=== PATIENT | female | born 1965 | race African-American/Black ===

== ENCOUNTER → 2017-08-29 | Day surgery (SDC) | payer OTHER ==
[~2017-08-29] MED LIST: ADVAIR 100-501 EACH INH; ADVAIR 100/501 EA INH; AMITIZA24 MCG PO; ANUSOL-HC25 MG PR; BENTYL20 MG PO; CARAFATE1 GM PO; DYAZIDE 37.5-21 EACH PO; DYAZIDE PO; FENTANYL CITRATE/PF 100MCG/2 ML INJ ONE; GI COCKTAIL PO ONE; HYOSCYAMINE SULFATE 0.5 MG/ML AMP ONE; HYZAAR PO; KLONOPIN0.5 MG PO; LIDOCAINE HCL 2% LOCAL INJ 5 ML SDV VIAL INJ ONE; LOSARTAN POTASS25 MG PO; METOPROLOL SUCC50 MG PO; MIDAZOLAM HCL 2 MG/2 ML VIAL ONE; OMEPRAZOLE-BIC1 EAC1 PO; PANTOPRAZOLE 40 MG 10ML VIAL ONE; POTASSIUM CHLO10 MEQ PO; PROPOFOL IV EMULSION 10 MG/ML 50 ML VIAL ONE; REGLAN10 MG PO; TOPROL XL25 MG PO; TRIAMTERENE-HCTZ1 EA PO; XANAX0.5 MG PO; Z.0.REGLAN10 MG PO; Z.0.XANAX0.5 MG PO; Z.0.ZEGERID 40 MG1 E PO; Z.0.ZOLOFT50 MG PO; ZEGERID 40 MG1 EACH PO; ZEGERID PO; ZOLOFT50 MG PO; ZYRTEC10 M3 PO; [UNRECOGNIZED DRUG - OTHER] PO
--- NOTE | 2017-08-29 13:50 | Operative Report ---
DATE OF PROCEDURE: August 29, 2017 REFERRING PHYSICIAN: Dr. Sophia Myers. PROCEDURE PERFORMED: Esophagogastroduodenoscopy with polypectomy and esophageal dilatation and biopsies and colonoscopy with polypectomy. INDICATIONS FOR ESOPHAGOGASTRODUODENOSCOPY: Dysphagia, upper abdominal pain. INDICATIONS FOR COLONOSCOPY: Colorectal cancer screening, lower abdominal pain, personal history of colon polyps MEDICATION: Patient was done under MAC. Please see anesthesiologist's note. PROCEDURE: With the patient in the left lateral decubitus position flexible, fiberoptic Olympus gastroscope was introduced into the esophagus under direct visualization without any difficulty. There was some patchy erythema noted in distal esophagus. A mild stricture was noted at the GE junction that was dilated to a size 52-St Helenian Javed. The scope was then advanced with ease into the stomach and an approximately 1.2 cm sessile lesion was noted in the antrum and that was removed per snare electrocautery and polypectomy site was hemoclipped. The mucosa overlying the antrum as well as the body revealed some patchy erythema and mild to moderate edema and biopsies were obtained and sent to stain for H. pylori. The pylorus was of normal contour and shape. Was intubated with ease and the scope was advanced all the way to the 2nd portion of the duodenum. The scope was then withdrawn slowly. Mucosa overlying the proximal 2nd portion and the duodenal bulb appeared to be within normal limits. The scope was then withdrawn back into the stomach and retroflexed. Mucosa overlying the fundus and the cardia appeared to be within normal limits. The scope was then straightened out. The stomach was decompressed. Scope was subsequently withdrawn. Patient tolerated the procedure well. IMPRESSION: 1. Mild distal esophagitis. 2. Esophageal stricture at gastroesophageal junction dilated to size 52-St Helenian Javed. 3. Gastritis biopsied. Biopsy sent to stain for H. pylori. 4. Approximately 1.2 cm sessile mass antrum removed per piecemeal electrocautery and polypectomy site was hemoclipped times 2. PLAN: Follow up histology. Increase omeprazole to 40 mg 1 p.o. a.c. b.i.d. PROCEDURE: Patient was then turned around and after adequate lubrication of the anal canal a flexible fiberoptic Olympus colonoscope was inserted into the rectum with ease and advanced all the way to the cecum. The scope was then withdrawn slowly. Mucosa overlying the cecum appeared to be within normal limits. Colonic mucosa revealed changes compatible with melanosis coli pretty much throughout. One polyp was hot biopsied from the distal ascending colon. The transverse and descending, other than for melanosis coli and some diverticular disease in the distal descending, appeared to be within normal limits. Similar findings were noted in the sigmoid with some scattered diverticular disease. One submucosal nodule proximal rectum (?) carcinoid was hot biopsied. There was a minute polyp in the distal rectum that was hot biopsied. The scope was then retroflexed into the distal rectum and small internal hemorrhoids were noted, none of which were actively bleeding. The scope was then straightened out. The rectosigmoid area as well as the distal rectal area were decompressed. Scope was subsequently withdrawn. Patient tolerated the procedure well. IMPRESSION 1. Melanosis coli. 2. Ascending colon polyp, hot biopsied. 3. Diverticulosis. 4. Minute submucosal nodule proximal rectum (?) carcinoid, hot biopsied. 5. Distal rectal polyp hot biopsied. 6. Internal hemorrhoids, none actively bleeding. PLAN: Follow up histology. Initiate high-fiber low-fat diet. Initiate high-fiber supplement. Patient will need a followup colonoscopy in 3 years. Job#: [id number] cc:SOPHIA MYERS MD
--- OUTSIDE RECORDS SUMMARY | 2017-08-31 09:48 | XMS REPORT ---
Author [facility] Address Unknown Phone Unavailable Care Team Providers Care Director Engineering Name Role Phone DELTA DUMONT Unavailable Unavailable Problems This patient has no known problems. Allergies, Adverse Reactions, Alerts This patient has no known allergies or adverse reactions. Medications This patient has no known medications. Results Test Description Test Time Test Comments Text Results Atomic Results Result Comments BONE SCAN SPECT [place] [address] Patient Name: BELINDA WISE MR #: [id number] : 1965 Age/Sex: 51/F Req # : [id number] Adm Physician: Ordered by: DELTA DUMONT MD Report #: [id number] Location: [place] Room/Bed: Procedure: [id number] NM/BONE SCAN SPECT Exam Date: Exam Time: REPORT STATUS: Signed Bone Scan, delayed phase INDICATION: 51 F sustained fall from chair >6 months ago. Right knee pain has been persistent. COMPARISON: Multiple peripheral joint radiographs including right knee radiographs 10/12/2016; MRI cervical and lumbar spine 11/19/2016. REPORT: Approximately 3 hours following intravenous administration of 27 mCi of Tc-99m MDP, delayed total body images in the anterior and posterior projections and selected spot images were obtained. Focal areas of increased tracer in the cervical spine are consistent with degenerative change and correspond to degenerative changes seen on MRI 11/19/2016. Increased tracer is seen in the right patella and along the anterior aspect of the articular surface of the right femur distally. Some increased tracer is seen in the right quadriceps tendon distally. Otherwise, distribution of tracer activity is unremarkable throughout the skeletal system. No abnormal accumulation of tracer is seen in the soft tissues or urinary tract. IMPRESSION: Changes in the right knee are non-specific. They are most consistent with osteoarthritis although post-traumatic change could give this appearance. Some microcalcification is seen in the right quadriceps tendon, likely post-traumatic. Signed by: Dr. Lisa Vargas M.D. on 2016 6:50 PM Dictated By: LISA VARGAS MD 49 Transcribed By: ANGELO on 05/06/171849 COPY TO: DELTA DUMONT MD
== END | disposition home or self-care (01) ==
LOC: OR 08:05
PROVIDERS: ATTEND Internal Medicine Gastroenterology
DX: K29.50 Unspecified chronic gastritis without bleeding (principal); C7A.8 Other malignant neuroendocrine tumors; D12.2 Benign neoplasm of ascending colon; K62.1 Rectal polyp; K31.7 Polyp of stomach and duodenum; K22.2 Esophageal obstruction; K21.9 Gastro-esophageal reflux disease without esophagitis; K20.9 Esophagitis, unspecified; K63.89 Other specified diseases of intestine; K57.30 Diverticulosis of large intestine without perforation or abscess without bleeding; K64.8 Other hemorrhoids; I10 Essential (primary) hypertension; J45.909 Unspecified asthma, uncomplicated; F32.9 Major depressive disorder, single episode, unspecified; F41.9 Anxiety disorder, unspecified; Z01.810 Encounter for preprocedural cardiovascular examination
CPT/HCPCS: 43239; 43251; 43450; 45384; 93005; J1980; J2001; J2250

== ENCOUNTER 2017-09-01 16:54 | Emergency (ER) | payer OTHER ==
[~2017-09-01] VITALS: Ht 152.4 cm; Wt 90.3 kg
[~2017-09-01 16:54] MED LIST changes: -FENTANYL CITRATE/PF 100MCG/2 ML INJ ONE; -GI COCKTAIL PO ONE; -HYOSCYAMINE SULFATE 0.5 MG/ML AMP ONE; -LIDOCAINE HCL 2% LOCAL INJ 5 ML SDV VIAL INJ ONE; -MIDAZOLAM HCL 2 MG/2 ML VIAL ONE; -PANTOPRAZOLE 40 MG 10ML VIAL ONE; -PROPOFOL IV EMULSION 10 MG/ML 50 ML VIAL ONE
[2017-09-01] MEDS ORDERED: NIFEDIPINE 10 MG CAP SL ONE (18:45)
[2017-09-01 19:50] LABS: BASOPHILS # (AUTO) 0.1 (0.0-0.1); BASOPHILS % 0.8 % (0.0-1.0); EOSINOPHILS # (AUTO) 0.2 (0.0-0.4); EOSINOPHILS % 1.7 % (0.0-6.0); HEMATOCRIT 38.8 % (34.2-44.1); HEMOGLOBIN 12.6 g/dL (12.0-16.0); LYMPHOCYTES # (AUTO) 4.4 (1.0-3.2); LYMPHOCYTES % 45.1 % (18.0-39.1); MEAN CORPUSCULAR HEMOGLOBIN 27.3 pg (28-32); MEAN CORPUSCULAR HGB CONC 32.5 g/dL (31-35); MEAN CORPUSCULAR VOLUME 84.2 fL (81-99); MONOCYTES # (AUTO) 0.8 (0.2-0.8); MONOCYTES % 8.5 % (4.4-11.3); NEUTROPHILS # (AUTO) 4.2 (2.1-6.9); NEUTROPHILS % 43.7 % (38.7-80.0); PLATELET COUNT 364 x10e3/uL (140-360); RED BLOOD COUNT 4.61 x10e6/uL (3.6-5.1); RED CELL DISTRIBUTION WIDTH 13.3 % (11.7-14.4)
[2017-09-01 20:14] LABS: ALANINE AMINOTRANSFERASE 18 IU/L (0-55); ALBUMIN/GLOBULIN RATIO 0.8 (0.8-2.0); ALKALINE PHOSPHATASE 70 IU/L (40-150); ANION GAP 15.5 mmol/L (8-16); BLOOD UREA NITROGEN 8 mg/dL (7-26); BUN/CREATININE RATIO 9 (6-25); CALCIUM 9.6 mg/dL (8.4-10.2); CARBON DIOXIDE 25 mmol/L (22-29); CHLORIDE 104 mmol/L (98-107); CREATININE, SERUM 0.91 mg/dL (0.57-1.11); EST GLOMERULAR FILTRATION RATE > 60 ML/MIN (60-); GLUCOSE 99 mg/dL (74-118); POTASSIUM 3.5 mmol/L (3.5-5.1); SODIUM 141 mmol/L (136-145)
[2017-09-01] MEDS ORDERED: PANTOPRAZOLE 40 MG 10ML VIAL IV STA (20:42)
[2017-09-01] MEDS ORDERED: ONDANSETRON HCL INJ 2 MG/ML VIAL IV STA ×2 (20:42→21:25)
--- NOTE | 2017-09-01 21:17 | Diagnostic Imaging Report ---
EXAM: ABDOMEN ACUTE SERIES W/PA CXR DATE: 09/01/2017 6:23 PM Time stamp on exam: 1827 hours INDICATION: Abdominal pain status post colonoscopy COMPARISON: None FINDINGS: LINES/TUBES: None BOWEL PATTERN: No evidence for obstruction. SOFT TISSUES: 6 mm calcification overlying the inferior pole of the right kidney is indeterminate Cholecystectomy clips are present in the right upper quadrant LUNG: The lungs are clear. No pleural effusion or pneumothorax. No evidence of air under the diaphragm. BONES: No acute findings. IMPRESSION: 1. No acute intrathoracic abnormality. 2. No evidence of obstructive bowel gas pattern or free intraperitoneal air. 3. Indeterminate calcification overlying the inferior pole of the right kidney. Signed by: Dr. Butch Mi M.D. on 09/01/2017 9:13 PM
[2017-09-01] MEDS ORDERED: DIPHENHYDRAMINE HCL INJ 50 MG/ML VIAL IV ONE (21:30)
[2017-09-01] MEDS ORDERED: MORPHINE SULFATE 5 MG/ML VIAL IV ONE (21:30)
[2017-09-01] MEDS ORDERED: MORPHINE SULFATE 2 MG/ML SYR ONE (21:32)
[2017-09-01] MEDS ORDERED: DIPHENHYDRAMINE HCL INJ 1 ML ONE (21:32)
[2017-09-01 21:44] LABS: AMYLASE 52 U/L (25-125); LIPASE 13 U/L (8-78)
[2017-09-01] MEDS ORDERED: LORAZEPAM INJ 2 MG/ML VIAL IV ONE (21:45)
--- NOTE | 2017-09-01 22:49 | Diagnostic Imaging Report ---
EXAM: CT Abdomen and Pelvis WITHOUT contrast INDICATION: Abdominal pain and flank pain. COMPARISON: None. TECHNIQUE: Abdomen and pelvis were scanned utilizing a multidetector helical scanner from the lung base to the pubic symphysis without administration of IV contrast. Absence of intravenous contrast decreases sensitivity for detection of focal lesions and vascular pathology. Coronal and sagittal reformations were obtained. Stone protocol is performed. IV CONTRAST: None. ORAL CONTRAST: Gastrografin RADIATION DOSE: Total DLP: 569.61 mGy*cm Estimated effective dose: (DLP x 0.015 x size factor) mSv COMPLICATIONS: None FINDINGS: LINES and TUBES: None. LOWER THORAX: Unremarkable HEPATOBILIARY: The liver is diffuse hypodense compared to the spleen, consistent with diffuse hepatic diffuse hepatic steatosis. No focal hepatic lesions. No biliary ductal dilation. GALLBLADDER: There are cholecystectomy clips. SPLEEN: No splenomegaly. PANCREAS: No focal masses or ductal dilatation. ADRENALS: No adrenal nodules KIDNEYS/URETERS: No hydronephrosis. No cystic or solid mass lesions. 6 mm stone in the inferior renal collecting system of the right kidney. GI TRACT: No abnormal distention, wall thickening, or evidence of bowel obstruction. Appendix is normal. PELVIC ORGANS/BLADDER: The uterus is absent. Bilateral ovaries are unremarkable. LYMPH NODES: No lymphadenopathy. VESSELS: There is mild atherosclerotic disease in the aorta and major arterial branches. PERITONEUM / RETROPERITONEUM: No free air or fluid. BONES: Unremarkable. SOFT TISSUES: Findings in along the anterior abdominal wall compatible with prior abdominoplasty . IMPRESSION: 1. Severe diffuse hepatic steatosis. 2. Right 6 mm stone in the inferior renal collecting system. 3. Signed by: Dr. Butch Mi M.D. on 09/01/2017 10:46 PM
--- NOTE | 2017-09-02 00:44 | Diagnostic Imaging Report ---
Ventilation/perfusion lung scan Clinical Information: 51 F with severe chest and abdominal pain Comparison: None Discussion: Xenon-133 gas 11.2 mCi was administered via inhalation. Dynamic images of the lungs in the posterior projection were obtained through single breath, equilibrium, and washout phases. Distribution of tracer activity appears physiologic throughout the lungs.. There are no segmental ventilatory defects. Washout of tracer is mildly delayed with no evidence of air trapping. Perfusion images of the lungs were obtained in multiple projections following intravenous administration of approximately 5.4 mCi of Tc-99m MAA. Distribution of tracer appears physiologic throughout the lungs. The contours of the lungs are well demarcated. There are no segmental perfusion defects of any size. The cardiomediastinal silhouette is unremarkable. Impression: 1. Scan findings represent a VERY LOW probability for acute pulmonary embolic disease based on the PIOPED II criteria. 2. Scan evidence of mild obstructive lung disease. Signed by: Dr. Demetra Aldana M.D. on 09/02/2017 12:40 AM
[2017-09-02 01:45] VITALS: BP 124/65
== END 2017-09-02 01:00 | disposition home or self-care (01) ==
LOC: ER 16:54
DX: R10.11 Right upper quadrant pain (principal); R10.12 Left upper quadrant pain; R10.13 Epigastric pain; R11.2 Nausea with vomiting, unspecified; M54.5 Low back pain
CPT/HCPCS: 36415; 74022; 74176; 78582; 80053; 82150; 82550; 82553; 83690; 84484; 85025; 85379; 99284; A9540; A9558; J1200; J2060; J2270; J2405

== ENCOUNTER 2018-08-09 16:57 | Inpatient (IN) | payer OTHER ==
[~2018-08-09] VITALS: Ht 170.2 cm; Wt 92.2 kg
--- OUTSIDE RECORDS SUMMARY | 2018-08-09 17:01 | XMS REPORT | Clinical Summary ---
Author Author [facility] Address Unknown Phone Unavailable Care Team Providers Care Structural Worker Name Role Phone Neptali Zaragoza MD PCP Allergies Not on File Medications Not on file Active Problems Not on file Encounters Care Team Description Date Type Specialty Dev Sutton MD Gastro-esophageal reflux disease with esophagitis 04/29/2018 Hospital Radiology Encounter Dev Sutton MD Gastro-esophageal reflux disease with esophagitis (Primary Dx) 04/22/2018 Transcribe Access Orders Neptali Zaragoza MD Pain of left lower extremity 01/18/2018 Hospital Radiology Encounter Neptali Zaragoza MD Pain of left lower extremity (Primary Dx) 01/18/2018 Transcribe Access Orders after 08/08/2017 Social History Date Tobacco Use Types Packs/Day Years Used Never Assessed Sex Assigned at Date Recorded Not on file Industry Job Start Date Occupation Not on file Not on file Not on file Travel End Travel History Travel Start No recent travel history available. Last Filed Vital Signs Not on file Plan of Treatment Health Maintenance Due Date Last Done Comments CERVICAL CANCER SCREENING 1985 BREAST CANCER SCREENING 2014 COLON CANCER SCREENING 2014 SHINGLES VACCINES ( of 2014 2) INFLUENZA VACCINE 02/24/2018 Procedures Comments Procedure Name Priority Date/Time Associated Diagnosis NM GASTRIC EMPTYING Routine 04/29/2018 Gastro-esophageal reflux 10:24 AM CDT disease with esophagitis US DUPLEX VENOUS LOWER Routine 01/18/2018 Pain of left lower EXTREMITY LEFT 6:42 PM CDT extremity after 08/08/2017 Results * NM Gastric Emptying (04/29/2018 10:24 AM CDT) Narrative Performed At Procedure:NM GASTRIC EMPTYING [facility] Clinical History:K21.0 Gastro-esophageal reflux disease with esophagitis, reflux disease Technique 0.8 millicuries of Ym-10b-nqapjj colloid were mixed with an egg and cooked. The egg was fed to the patient and dynamic imaging of the abdomen in the anterior and posterior projections was performed for 90 minutes. Quantification of gastric emptying was performed using the geometric mean of the anterior and posterior projections. FINDINGS: Gastric emptying half time=68 minutes (normal is <100 minutes). IMPRESSION: Normal gastric emptying. [facility]-[id number] Procedure Note Interface, Radiology Results Incoming - 04/29/2018 10:39 AM CDT Procedure: NM GASTRIC EMPTYING Clinical History: K21.0 Gastro-esophageal reflux disease with esophagitis, reflux disease Technique 0.8 millicuries of Py-81o-xwvxqk colloid were mixed with an egg and cooked. The egg was fed to the patient and dynamic imaging of the abdomen in the anterior and posterior projections was performed for 90 minutes. Quantification of gastric emptying was performed using the geometric mean of the anterior and posterior projections. FINDINGS: Gastric emptying half time=68 minutes (normal is <100 minutes). IMPRESSION: Normal gastric emptying. [facility]-[id number] Performing Organization Address City/State/Zipcode Phone Number [facility] [address] [place] [address] * Pv duplex venous lower extremity (01/18/2018 6:42 PM CDT) Narrative Performed At EXAMINATION:US DUPLEX VENOUS LOWER EXTREMITY LEFT [facility] CLINICAL HISTORY:M79.605 Pain in left leg, pain COMPARISON:None. TECHNIQUE:Grayscale, color Doppler, and spectral waveform analysis of the left lower extremity deep venous system was performed. The common femoral, superficial femoral, proximal deep femoral, greater saphenous, and popliteal veins were evaluated. The calf veins were also evaluated. FINDINGS: 1. The visualized left common femoral, profunda femoral, femoral, popliteal, and calf veins demonstrate normal flow and augmentation without evidence of thrombosis. The right common femoral vein is patent. 2. There is no evidence of thrombosis within visualized portions of the left greater saphenous vein. 3.There is no evidence of a popliteal or Blackwell's cyst. IMPRESSION: Normal left lower extremity venous Doppler examination. There is no evidence of deep venous thrombosis. [facility]-[id number] Procedure Note Interface, Radiology Results Incoming - 01/18/2018 6:47 PM CDT EXAMINATION: US DUPLEX VENOUS LOWER EXTREMITY LEFT CLINICAL HISTORY: M79.605 Pain in left leg, pain COMPARISON: None. TECHNIQUE: Grayscale, color Doppler, and spectral waveform analysis of the left lower extremity deep venous system was performed. The common femoral, superficial femoral, proximal deep femoral, greater saphenous, and popliteal veins were evaluated. The calf veins were also evaluated. FINDINGS: 1. The visualized left common femoral, profunda femoral, femoral, popliteal, and calf veins demonstrate normal flow and augmentation without evidence of thrombosis. The right common femoral vein is patent. 2. There is no evidence of thrombosis within visualized portions of the left greater saphenous vein. 3. There is no evidence of a popliteal or Blackwell's cyst. IMPRESSION: Normal left lower extremity venous Doppler examination. There is no evidence of deep venous thrombosis. [facility]-[id number] Performing Organization Address City/State/Zipcode Phone Number [facility] [address] [place] [address] after 08/08/2017 Insurance Payer Benefit Subscriber ID Type Phone Address Plan / Group [facility] xxxxxxxxx HMO/PPO THCARE CHOICE/CHO ICE + Advance Directives Patient has advance care planning documents on file. For more information, melissaas e contact: Akbar Viera [address] [place] [address]
--- OUTSIDE RECORDS SUMMARY | 2018-08-09 17:01 | XMS REPORT | Clinical Summary ---
Author Author [facility] Address Unknown Phone Unavailable Care Team Providers Care Web Content Specialist Name Role Phone Zak Castellano PCP Allergies Comments Active Allergy Reactions Severity Noted Date Clarithromycin Anaphylaxis High 04/27/2018 Codeine Anaphylaxis High 04/27/2018 Erythromycin Anaphylaxis High 04/27/2018 Iodine And Iodide Anaphylaxis High 04/27/2018 Containing Products Hallucinations Ketorolac Other (See 04/27/2018 Comments) HIVES, WHELPS Morphine Itching 04/27/2018 Naproxen Anaphylaxis High 04/27/2018 Penicillins Anaphylaxis High 04/27/2018 PARALYSIS Nifedipine Other (See 04/27/2018 Comments) Propoxyphene Itching 04/27/2018 Butorphanol Tartrate Hives 04/27/2018 Sulfa (Sulfonamide Nausea And 04/27/2018 Antibiotics) Vomiting Sulfisoxazole Nausea And 04/27/2018 Vomiting Gatifloxacin In D5w Nausea And 04/27/2018 Vomiting Tramadol 04/27/2018 Diazepam 04/27/2018 Medications End Date Status Medication Sig Dispensed Refills Start Date Active metoclopramide HCl Take 20 mg by 0 (REGLAN) 10 MG tablet mouth 3 (three) times daily. Active ALPRAZolam (XANAX) 1 MG Take 1 mg by 0 tablet mouth 3 (three) times daily. Active fluticasone-salmeterol Inhale 1 puff 0 (ADVAIR) 100-50 mcg/dose by mouth via diskus inhaler inhaler 2 (two) times daily. Active sertraline (ZOLOFT) 50 MG Take 50 mg by 0 tablet mouth daily. Active losartan-hydroCHLOROthiaz Take 1 tablet 0 delmi (HYZAAR) 50-12.5 mg by mouth per tablet daily. Active triamterene-hydroCHLOROth Take 1 0 iazide (DYAZIDE) 37.5-25 capsule by mg per capsule mouth every morning. Active sucralfate (CARAFATE) 1 Take 1 g by 0 gram tablet mouth 4 (four) times daily. Active clonazePAM (KLONOPIN) 1 Take 1 mg by 0 MG tablet mouth daily. Active omeprazole-sodium Take 1 0 bicarbonate (ZEGERID) capsule by 40-1.1 mg-gram per mouth every capsule morning before breakfast. Active dicyclomine (BENTYL) 20 Take 20 mg by 0 mg tablet mouth every 6 (six) hours. Active omeprazole (PRILOSEC) 40 Take 40 mg by 0 MG capsule mouth 2 (two) times daily. Active cetirizine (ZYRTEC) 10 MG Take 10 mg by 0 tablet mouth daily. 05/05/2018 Discontinued losartan (COZAAR) 50 MG Take 50 mg by 0 tablet mouth daily. Active Problems Not on file Encounters Care Team Description Date Type Specialty Meli Garay MD REMOVAL,24HR PH PROBE 05/06/2018 Surgery Gastroenterology Meli Garay MD 05/06/2018 Hospital Gastroenterology Encounter Meli Garay MD TEST,MONITORING 24 HR PH 05/05/2018 Surgery Gastroenterology Isak Davis MD 05/05/2018 Anesthesia Gastroenterology Event Meli Garay MD 05/05/2018 Hospital Gastroenterology Encounter Tera Zelaya Jr., MD 04/27/2018 Anesthesia Gastroenterology Event Marcin Velazquez MD SIGMOIDOSCOPY,ULTRASOUND 04/27/2018 Surgery Gastroenterology Marcin Velazquez MD 04/27/2018 Hospital Gastroenterology Encounter after 08/08/2017 Social History Date Tobacco Use Types Packs/Day Years Used Never Smoker Smokeless Tobacco: Never Used Alcohol Use Drinks/Week oz/Week Comments No Sex Assigned at Date Recorded Not on file Industry Job Start Date Occupation Not on file Not on file Not on file Travel End Travel History Travel Start No recent travel history available. Last Filed Vital Signs Time Taken Vital Sign Reading 05/05/2018 9:26 AM CDT Blood Pressure 153/94 05/05/2018 9:26 AM CDT Pulse 72 05/05/2018 9:26 AM CDT Temperature 37.1 C (98.7 F) 05/05/2018 9:26 AM CDT Respiratory Rate 18 05/05/2018 9:26 AM CDT Oxygen Saturation 95% - Inhaled Oxygen - Concentration 04/27/2018 10:30 AM CDT Weight 92.8 kg (204 lb 9.6 oz) 04/27/2018 10:30 AM CDT Height 171.5 cm (5' 7.5") 04/27/2018 10:30 AM CDT Body Mass Index 31.57 Plan of Treatment Not on file Procedures Comments Procedure Name Priority Date/Time Associated Diagnosis REMOVAL,24HR PH PROBE 05/06/2018 Hiatal hernia 10:00 AM CDT MOTILITY 05/05/2018 Hiatal hernia 10:00 AM CDT Special Needs (ON MEDICATION ) TEST,MONITORING 24 HR PH 05/05/2018 Hiatal hernia 10:00 AM CDT Special Needs (ON MEDICATION ) REPORT OF PROCEDURE - 04/27/2018 ENDOSCOPY URL 3:56 PM CDT TISSUE EXAM AP Routine 04/27/2018 12:37 PM CDT UPPER 04/27/2018 Primary malignant ENDOSCOPY,SUBMUCOSAL 11:00 AM CDT neuroendocrine tumor of RESECTION colon (HCC) Special Needs (RADIAL SCOPE) SIGMOIDOSCOPY,ULTRASOUND 04/27/2018 Primary malignant 11:00 AM CDT neuroendocrine tumor of colon (HCC) Special Needs (RADIAL SCOPE) after 08/08/2017 Results * REPORT OF PROCEDURE - ENDOSCOPY URL (04/27/2018 3:56 PM CDT) Narrative Performed At * Tissue Exam (04/27/2018 12:37 PM CDT) Case Report Surgical Pathology [facility] Report [facility] Case: [id number] Authorizing Provider:Marcin Velazquez Collected: 04/27/2018 Yenny Mclain MD Ordering Location: [facility] Endoscopy Received: 04/27/2018 1500 Services Pathologist: Herrera Em MD Specimens: A) - Tumor,proximal polypectomy site B) - Tumor, distal polypectomy site C) - Polyp, Colon - Rectum, tumor esd removalproximal site D) - Polyp, Colon - Rectum, tumor esd removaldistal site DIAGNOSIS A. COLON, PROXIMAL POLYPECTOMY [facility] SITE, BIOPSY: [facility] - NEGATIVE FOR DYSPLASIA OR MALIGNANCY - NEGATIVE FOR RESIDUAL TUMOR B. COLON, DISTAL POLYPECTOMY SITE, BIOPSY: - NEGATIVE FOR DYSPLASIA OR MALIGNANCY - NEGATIVE FOR RESIDUAL TUMOR C. COLON, PROXIMAL SITE, ENDOSCOPIC SUBMUCOSAL DISSECTION: - NEGATIVE FOR DYSPLASIA OR MALIGNANCY (SEE COMMENT) - NEGATIVE FOR RESIDUAL TUMOR D. COLON, DISTAL SITE, ENDOSCOPIC SUBMUCOSAL DISSECTION: - NEGATIVE FOR DYSPLASIA OR MALIGNANCY (SEE COMMENT) - NEGATIVE FOR RESIDUAL TUMOR Signing Pathologist Direct Phone Line: [phone] COMMENT Sections show colonic mucosa [facility] with very superficial layer of [facility] submucosa. The surface epithelium shows minimal hyperplastic changes. No dysplasia or malignancy are seen. Per chart review, the patient has a history of neuroendocrine tumor of the colon. No residual neuroendocrine tumor is seen in the current resection. Clinical/endoscopic correlation is recommended. CPT Code(s) 17330 x 2, 89215 x 2 [facility] CLINICAL HISTORY NEUROENDOCRINE TUMOR (per [facility] chart review) [facility] SPECIMEN SOURCE A. Proximal polypectomy site. [facility] B. Distal polypectomy site. C: [facility] rectum colon polyp. proximal, ESD; D. Tumor ESD removal of distal site GROSS DESCRIPTION Part A labeled "proximal [facility] polypectomy site" consists of [facility] two fragments of fatima tissue measuring 0.1 and 0.2 cm submitted in A1. Part B labeled "distal polypectomy site" consists of a 0.1 cm fragment of fatima tissue submitted in B1. CG/ew Part C labeled "rectum colon polyp, proximal site tumor" consists of an unoriented shaved excision of fatima-red mucosa measuring 2 x 1.9 x 0.1 cm. Ink code: periphery blue; deep black. The specimen is serially sectioned from one end to the other. The surface is smooth and glistening with no distinct lesions seen. The specimen is entirely submitted C1 through C7 . Part D labeled "rectum colon polyp, distal site" consists of a shaved excision of fatima-red mucosa measuring 2.5 x 2 x 0.1 cm. The surface is smooth and glistening. The specimen is not oriented. Ink code: periphery blue, deep black. The specimen is serially sectioned from one end to the other. D1, through D8. CG/pl MICROSCOPIC DESCRIPTION Performed. [facility] Specimen Tissue - Tumor Performing Organization Address City/State/Zipcode Phone Number [facility] [address] [place] [address] MEDICAL CENTER after 08/08/2017 Insurance Payer Benefit Subscriber ID Type Phone Address Plan / Group [facility] [place] HMO xxxxxxxxx HMO/POS CARE POS SELECT CHOICE
[2018-08-09] MEDS ORDERED: KETOROLAC TROMETHAMINE 30 MG/ML VIAL IV STA (21:07)
[2018-08-09] MEDS ORDERED: SODIUM CHLORIDE 0.9% 1000ML 1,000 ML IV STA (21:07)
[2018-08-09] MEDS ORDERED: FAMOTIDINE 20 MG/2 ML VIAL IV ONE (21:15)
[2018-08-09] MEDS ORDERED: ONDANSETRON HCL INJ 2 MG/ML VIAL IV ONE (21:30)
[2018-08-09] MEDS ORDERED: DIPHENHYDRAMINE HCL INJ 50 MG/ML VIAL IV ONE (21:30)
[2018-08-09] MEDS ORDERED: DEXAMETHASONE SOD PHOS 10 MG/1 ML VIAL IV ONE (21:30)
[2018-08-09 23:01] LABS: BASOPHILS # (AUTO) 0.1 (0.0-0.1); BASOPHILS % 0.8 % (0.0-1.0); EOSINOPHILS # (AUTO) 0.1 (0.0-0.4); EOSINOPHILS % 1.4 % (0.0-6.0); HEMATOCRIT 40.2 % (34.2-44.1); HEMOGLOBIN 12.8 g/dL (12.0-16.0); LYMPHOCYTES # (AUTO) 4.3 (1.0-3.2); LYMPHOCYTES % 44.3 % (18.0-39.1); MEAN CORPUSCULAR HEMOGLOBIN 26.6 pg (28-32); MEAN CORPUSCULAR HGB CONC 31.8 g/dL (31-35); MEAN CORPUSCULAR VOLUME 83.4 fL (81-99); MONOCYTES # (AUTO) 0.8 (0.2-0.8); NEUTROPHILS # (AUTO) 4.4 (2.1-6.9); NEUTROPHILS % 45.3 % (38.7-80.0); PLATELET COUNT 316 x10e3/uL (140-360); RED BLOOD COUNT 4.82 x10e6/uL (3.6-5.1); RED CELL DISTRIBUTION WIDTH 13.9 % (11.7-14.4)
[2018-08-09 23:13] LABS: BILIRUBIN,URINE NEGATIVE (NEGATIVE); CLARITY,URINE CLOUDY (CLEAR); COLOR,URINE YELLOW (YELLOW); KETONES,URINE NEGATIVE (NEGATIVE); LEUKOCYTE ESTERASE ,URINE NEGATIVE (NEGATIVE); NITRITE,URINE NEGATIVE (NEGATIVE); PROTEIN,URINE DIPSTICK 2+ (NEGATIVE); URINE UROBILINOGEN 0.2 mg/dL (0.2 - 1)
[2018-08-09 23:16] LABS: ALANINE AMINOTRANSFERASE 30 IU/L (0-55); ALBUMIN 3.9 g/dL (3.5-5.0); ALBUMIN/GLOBULIN RATIO 1.1 (0.8-2.0); ALKALINE PHOSPHATASE 65 IU/L (40-150); ANION GAP 14.1 mmol/L (8-16); BLOOD UREA NITROGEN 8 mg/dL (7-26); BUN/CREATININE RATIO 9 (6-25); CALCIUM 9.9 mg/dL (8.4-10.2); CARBON DIOXIDE 27 mmol/L (22-29); CHLORIDE 100 mmol/L (98-107); CREATININE, SERUM 0.91 mg/dL (0.57-1.11); EST GLOMERULAR FILTRATION RATE > 60 ML/MIN (60-); GLUCOSE 137 mg/dL (74-118); POTASSIUM 3.1 mmol/L (3.5-5.1); SODIUM 138 mmol/L (136-145)
[2018-08-09 23:23] LABS: BACTERIA,URINE MANY /HPF; CALCIUM OXALATE CRYSTALS,UR FEW (FEW); EPITHELIAL CELLS,URINE MANY /LPF; RBC,URINE 0-5 /HPF (0-5); WBC,URINE (MAN) 0-5 /HPF (0-5)
[2018-08-10] VITALS (9 sets, daily range): BP systolic 150–176; BP diastolic 77–97
[2018-08-10] MEDS ORDERED: PROMETHAZINE 25MG/ NS 50ML (IV) IV PRN
[2018-08-10] MEDS ORDERED: ENALAPRILAT IV INJ 1.25 MG/ML VIAL IV PRN
[2018-08-10] MEDS ORDERED: SODIUM CHLORIDE FLUSH 10 ML SYR INJ PRN
[2018-08-10] MEDS ORDERED: DIPHENHYDRAMINE HCL INJ 50 MG/ML VIAL IV PRN
[2018-08-10] MEDS ORDERED: ZOLPIDEM TARTRATE 5 MG TAB PO PRN
--- OUTSIDE RECORDS SUMMARY | 2018-08-10 00:46 | XMS REPORT | Clinical Summary ---
Author Author [facility] Address Unknown Phone Unavailable Care Team Providers Care Manager Military Name Role Phone Neptali Zaragoza MD PCP [...] (Primary Dx) 01/18/2018 Transcribe Access Orders after 08/09/2017 Social History Date Tobacco Use Types Packs/Day [...] EXTREMITY LEFT 6:42 PM CDT extremity after 08/09/2017 Results * NM Gastric Emptying (04/29/2018 10:24 AM CDT) Narrative Performed At Procedure:NM GASTRIC EMPTYING [facility] Clinical History:K21.0 Gastro-esophageal reflux disease with esophagitis, reflux disease Technique 0.8 millicuries of Lp-06q-cukgry colloid were mixed with an egg and cooked. The egg was fed to the patient and dynamic imaging of the abdomen in the anterior and posterior projections was performed for 90 minutes. Quantification of gastric emptying was performed using the geometric mean of the anterior and posterior projections. FINDINGS: Gastric emptying half time=68 minutes (normal is <100 minutes). IMPRESSION: Normal gastric emptying. [facility]-[id number] Procedure Note Interface, Radiology Results Incoming - 04/29/2018 10:39 AM CDT Procedure: NM GASTRIC EMPTYING Clinical History: K21.0 Gastro-esophageal reflux disease with esophagitis, reflux disease Technique 0.8 millicuries of Kd-[id number]-[id number] colloid were mixed with an egg and cooked. The egg was fed to the patient and dynamic imaging of the abdomen in the anterior and posterior projections was performed for 90 minutes. Quantification of gastric emptying was performed using the geometric mean of the anterior and posterior projections. FINDINGS: Gastric emptying half time=68 minutes (normal is <100 minutes). IMPRESSION: Normal gastric emptying. [facility]-[id number] Performing Organization Address City/State/Zipcode Phone Number [facility] [address] [place] [address] * Pv duplex venous lower extremity (01/18/2018 [...] is no evidence of deep venous thrombosis. [facility]-[id number] Procedure Note Interface, Radiology Results Incoming - [...] is no evidence of deep venous thrombosis. [facility]-[id number] Performing Organization Address City/State/Zipcode Phone Number [facility] [address] [place] [address] after 08/09/2017 Insurance Payer Benefit Subscriber ID Type Phone Address Plan / Group [facility] xxxxxxxxx HMO/PPO THCARE CHOICE/CHO ICE + Advance Directives Patient has advance care planning documents on file. For more information, melissaas e contact: Akbar Viera [address] [place] [address]
--- OUTSIDE RECORDS SUMMARY | 2018-08-10 00:47 | XMS REPORT | Clinical Summary ---
Author Author ANNEL [facility] Address Unknown Phone Unavailable Care Team Providers Care Pediatric Physical Therapy Assistant Name Role Phone Zak Castellano PCP Allergies [...] Velazquez MD 04/27/2018 Hospital Gastroenterology Encounter after 08/09/2017 Social History Date Tobacco Use [...] colon (HCC) Special Needs (RAD[facility] SCOPE) after 08/09/2017 Results * REPORT OF PROCEDURE - ENDOSCOPY URL (04/27/2018 3:56 PM CDT) Narrative Performed At * Tissue Exam (04/27/2018 12:37 PM CDT) Case Report Surgical Pathology [facility] Report [facility] Case: [id number] Authorizing Provider:Marcin Velazquez Collected: 04/27/2018 Yenny Mclain MD Ordering Location: [facility] Endoscopy Received: 04/27/2018 1500 Services Pathologist: Herrera Em MD Specimens: A) - Tumor,proximal polypectomy site B) - Tumor, distal polypectomy site C) - Polyp, Colon - Rectum, tumor esd removalproximal site D) - Polyp, Colon - Rectum, tumor esd removaldistal site DIAGNOSIS A. COLON, PROXIMAL POLYPECTOMY [facility] SITE, BIOPSY: [facility] - NEGATIVE FOR DYSPLASIA OR MALIGNANCY - [...] RESIDUAL TUMOR Signing Pathologist Direct Phone Line: [phone] COMMENT Sections show colonic mucosa [facility] with very superficial layer of [facility] submucosa. The surface epithelium shows minimal hyperplastic changes. No dysplasia or malignancy are seen. Per chart review, the patient has a history of neuroendocrine tumor of the colon. No residual neuroendocrine tumor is seen in the current resection. Clinical/endoscopic correlation is recommended. CPT Code(s) 40837 x 2, 63229 x 2 [facility] CLINICAL HISTORY NEUROENDOCRINE TUMOR (per [facility] chart review) [facility] SPECIMEN SOURCE A. Proximal polypectomy site. [facility] B. Distal polypectomy site. C: [facility] rectum colon polyp. proximal, ESD; D. Tumor ESD removal of distal site GROSS DESCRIPTION Part A labeled "proximal [facility] polypectomy site" consists of [facility] two fragments of fatima tissue measuring 0.1 [...] D1, through D8. CG/pl MICROSCOPIC DESCRIPTION Performed. [facility] Specimen Tissue - Tumor Performing Organization Address City/State/Zipcode Phone Number [facility] [address] [place] [address] MEDICAL [facility]ENTER after 08/09/2017 Insurance Payer Benefit Subscriber ID Type Phone Address Plan / Group [facility] HMO xxxxxxxxx HMO/POS CARE POS SELECT CHOICE
[2018-08-10] MEDS ORDERED: POTASSIUM CHLORIDE 20 MEQ TAB CR PO STA (00:54)
[2018-08-10] MEDS ORDERED: DIPHENHYDRAMINE HCL INJ 50 MG/ML VIAL IV ONE (02:00)
[2018-08-10] MEDS ORDERED: AMBIEN10 MG PO (06:18)
--- NOTE | 2018-08-10 06:50 | NUR ---
rounded with police shift commander nurse, patient aware of change. Patient resting in bed and in no distress. Call bazan within reach
[2018-08-10] MEDS: FAMOTIDINE 20 MG/2 ML VIAL IV SCH ×2 (09:05→16:50)
[2018-08-10] MEDS: DIPHENHYDRAMINE HCL INJ 50 MG/ML VIAL IV PRN (09:50)
[2018-08-10] MEDS: PROMETHAZINE 25MG/ NS 50ML (IV) IV PRN (09:50)
[2018-08-10] MEDS: HYDROMORPHONE 2MG/ML 2 MG/ML ML IV PRN (09:50)
--- NOTE | 2018-08-10 10:09 | NUR ---
SOCIAL WORK INITIAL ASSESSMENT Parking Enforcement Technician to bedside to discuss plan of care with patient/family. CM/SW role and care transitions discussed. Anticipated discharge plan discussed along with duration of care. CM/SW discussed patients right to make decisions in care. CM/SW work hours given. 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 Name and number was also written on the patients whiteboard. Patient verbalized understanding of discussion. CM will follow-up with ongoing discharge and transition of care needs.
--- NOTE | 2018-08-10 10:45 | NUR ---
patient left the unit via wheelchair for procedure. Alert and oriented and vitals are stable.
[2018-08-10] MEDS ORDERED: KETOROLAC TROMETHAMINE 30 MG/ML VIAL IM PRN (11:00)
[2018-08-10] MEDS ORDERED: HYDROCORTISONE ACETATE 25 MG/SUPP.RECT SUPP RC PRN ×2 (11:00→11:15)
[2018-08-10] MEDS ORDERED: ZOLPIDEM TARTRATE 10 MG TAB PO PRN (11:00)
[2018-08-10] MEDS ORDERED: KETOROLAC TROMETHAMINE 60 MG/2 ML VIAL IM ONE (11:00)
--- NOTE | 2018-08-10 11:50 | NUR ---
patient arrived back on unit, alert and oriented and in no distress.
[2018-08-10] MEDS ORDERED: KETOROLAC TROMETHAMINE 30 MG/ML VIAL IV STA (12:14)
[2018-08-10] MEDS: SUCRALFATE 1 GM TAB PO SCH ×3 (12:40→20:57)
[2018-08-10] MEDS: METOCLOPRAMIDE HCL 10 MG TAB PO SCH ×3 (12:50→20:57)
--- NOTE | 2018-08-10 13:43 | Diagnostic Imaging Report ---
Examination: MRI BRAIN WITHOUT CONTRAST History: Intractable migraines. Headaches. Pain all over head, face, teeth and neck. Comparison studies: None Technique: Sagittal T2; axial DWI, FLAIR, GRE or SWI, T1, Coronal FLAIR. Intravenous contrast: None Findings: Scalp: No abnormal signal. No masses. Bone marrow: Normal in signal intensity. Brain volume: Adequate for age. No volume loss. Ventricles: Normal in size and configuration. No hydrocephalus. Extra-axial spaces: No abnormalities. Parenchyma: No abnormal signal intensities. No masses, hemorrhage, acute or chronic vascular insults. Suprasellar and sellar region: No abnormalities. Craniocervical junction: No abnormalities. The foramen magnum is patent. No Chiari malformations. Vessels: Normal flow-voids in the arteries and sinuses. Additional findings:None. IMPRESSION: Normal noncontrast brain MRI. Signed by: Dr. Ofelia Rhodes M.D. on 08/10/2018 1:40 PM
--- NOTE | 2018-08-10 14:50 | NUR ---
Visit made by the Spiritual Care Department Pastoral Visitor, Deanna Roa. Pt unavailable at this time. LISA Gage Spiritual Care Department O: [phone] Pager: [phone] ([phone] number calling from)
[2018-08-10] MEDS ORDERED: ALPRAZOLAM 0.5 MG TAB PO SCH (15:00)
[2018-08-10] MEDS: DICYCLOMINE HCL 20 MG TAB PO SCH (16:50)
[2018-08-10] MEDS: ALPRAZOLAM 1 MG TAB PO SCH ×2 (16:50→21:59)
[2018-08-10] MEDS: PROMETHAZINE 25MG/ NS 50ML (IV) IV SCH (17:00)
[2018-08-10] MEDS: METHYLPREDNISOLONE SOD SUCC 125 MG/2ML VIAL IV SCH ×2 (17:15→23:47)
[2018-08-10] MEDS: VALPROATE SOD INJ 500 MG in SODIUM CHLORIDE 0.9% 100 ML 100 ML IV SCH ×2 (17:15→23:08)
[2018-08-10] MEDS: SODIUM CHLORIDE 0.9% 1000ML 1,000 ML IV SCH (17:15)
--- NOTE | 2018-08-10 19:05 | NUR ---
report given to shift commander nurse, patient aware of change. Patient in no distress and call bazan within reach
[2018-08-10] MEDS: CLONAZEPAM 1 MG TAB PO SCH (20:57)
[2018-08-10] MEDS ORDERED: SENNA-S TABLET PO SCH (21:00)
[2018-08-10] MEDS ORDERED: CLONAZEPAM 0.5 MG TAB PO SCH (21:00)
[2018-08-10] MEDS: SENNOSIDES 8.6 MG TAB PO SCH (22:00)
[2018-08-11] VITALS (8 sets, daily range): BP systolic 166–201; BP diastolic 70–100
--- NOTE | 2018-08-11 00:04 | Consultation ---
DATE OF CONSULTATION: August 10, 2018 NEUROLOGY CONSULT NOTE HISTORY OF PRESENT ILLNESS: Ms. Wise is a 52-year-old lzzpa-hpkq-bltzjhey woman with past medical history significant for hypertension, gastroesophageal reflux disease, Crohn's disease, multiple other gastrointestinal disorders, and mixed depression and anxiety disorder, admitted to [facility] on August 10, 2018 with a severe headache. Ms. Wise describes her headaches as follows: The pain is generalized and radiates to the neck, shoulders, left arm, and face. The pain is described as severe pressure with superimposed "pulsing" and is rated an 8/10 on average. However, the patient's headache is currently a 4/10. Associated with the headache are blurred vision, diplopia, and white and black spots intermittently affecting both eyes, photophobia, phonophobia, nausea with vomiting, dizziness which is further described as a lightheaded sensation, and poor mental clarity. The above described headache has been present for approximately 1 month. Recently, Ms. Wise presented at [facility] with the above described symptoms. She was given a medication to which she had an adverse reaction. Ms. Wise was subsequently discharged from the hospital. At home, the patient has taken xxvi-vdz-bqwgivd analgesics (Tylenol and Excedrin) without benefit and possible worsening of her headache and associated symptoms. Ms. Wise does not endorse a prior history of migraines or other headaches. There is no known family history of primary headache disorders. Several hours after admission to [facility], the patient was administered a combination of promethazine, Benadryl, and Dilaudid. With this medication, Ms. Sharmas headache decreased from a 10/10 to a 4/10 to 5/10. The patient was subsequently given Toradol, but this had no effect on her headache. REVIEW OF SYSTEMS: Seasonal allergies, nausea, vomiting, blurred vision, double vision, other visual disturbance, headache, dizziness, photophobia, phonophobia, 2 falls since July 27, 2018. Otherwise, the 12-point review of systems is negative. 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 PAST SURGICAL HISTORY: Partial colectomy, section x1, cholecystectomy, breast augmentation, partial hysterectomy. PAST HOSPITALIZATIONS: Surgeries/procedures as listed. FAMILY MEDICAL HISTORY: The patient's paternal and maternal grandparents are . Their medical histories are unknown. The patient's father is from prostate cancer. He had Alzheimer's disease as well. The patient's mother is from metastatic uterine cancer. She had hypertension and diabetes mellitus as well. Ms. Wise has 4 brothers and 1 sister, all of whom are alive. One brother has bipolar disorder. The remaining 3 brothers and sister are healthy. The patient has 2 daughters, both of whom are alive. Her youngest daughter has systemic lupus erythematosus. The eldest daughter is healthy. SOCIAL HISTORY: Ms. Wise is . 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 The patient does not report current or prior tobacco, alcohol, or recreational drug use. HOME MEDICATIONS: Reviewed. Please see the list of home medications available in the electronic medical record. HOSPITAL MEDICATIONS: Reviewed. Please see the list of hospital medications available in the electronic medical record. ALLERGIES: PENICILLIN, BUTORPHANOL, SULFA, CLARITHROMYCIN, CODEINE, DIAZEPAM, ERYTHROMYCIN, GATIFLOXACIN, HYDROMORPHONE, KETOROLAC, MAGNESIUM SULFATE, MEPERIDINE, MORPHINE, NAPROXEN, TRAMADOL. SHELLFISH. NO KNOWN ALLERGIES TO LATEX. MS. WISE DOES HAVE A DOCUMENTED ALLERGY TO IODINE. PHYSICAL EXAMINATION: VITAL SIGNS: Height 67 inches, weight 213 pounds, BMI 33.4 kg/sq m. Blood pressure 165/85 mmHg, pulse 92 beats per minute, respiratory rate 18 breaths per minute, oxygen saturation 94% on room air. GENERAL: The patient is awake and alert, does not appear distressed. Obese. HEENT: Normocephalic, atraumatic. Pupils are equal, round, and reactive to light. Moist mucous membranes. NECK: Supple. No appreciable thyromegaly. No appreciable carotid bruits. CARDIOVASCULAR: S1, S2, regular rate and rhythm. No murmurs, rubs, or gallops. RESPIRATORY: Clear to auscultation bilaterally. No wheezes, rhonchi, or rales. EXTREMITIES: The skin is warm and dry. No clubbing, cyanosis, or edema. The posterior tibial and dorsalis pedis pulses are 2+ and symmetric. SKIN: No rashes or lesions. NEUROLOGIC EXAMINATION: MEMORY/ATTENTION: The patient is awake and alert, oriented to person, place, time, and situation. CRANIAL NERVES: Cranial nerve I - not tested. Cranial nerves II, III, IV, and - Pupils are equal and round, reacts briskly to light (from 4 mm to 2 mm). Extraocular movements intact. No nystagmus. Cranial nerve V - Sensation to light touch and pinprick is intact in the bilateral V1 through V3 distributions. Strength of the temporalis and masseter muscles is within normal limits. Cranial nerve VII - The face is symmetric as are all facial movements. Strength is within normal limits. Cranial nerve VIII - Hearing is intact to finger rub bilaterally. Cranial nerve IX, X - The soft palate elevates equally and symmetrically. Cranial nerve XI - Normal strength of the bilateral sternocleidomastoid and trapezius muscles. Cranial nerve XII - The tongue protrudes midline and moves symmetrically from side to side. STRENGTH: Bulk is normal. Strength is 5/5 in the bilateral deltoids, biceps, triceps, wrist flexors and extensors, finger flexors and extensors, intrinsic hand muscles, hip flexors, knee flexors and extensors, ankle dorsiflexion and plantarflexion, and intrinsic foot muscles. Tone is normal. DTRs: Deep tendon reflexes are 2+ and symmetric at the triceps, biceps, brachioradialis, patellas, and Achilles. Plantar responses are flexor bilaterally. SENSATION: Sensation is intact to light touch and pinprick in both arms and both legs except as follows: Diminished sensation to pinprick over the right leg. CEREBELLAR: Cqzqzb-swnv-hfrfsb and heel-maxwell movements are intact without dysmetria or other impairment. GAIT: Deferred. SPEECH: Spontaneous speech is normal without appreciable dysarthria or aphasia. Repetition is intact. INVOLUNTARY MOVEMENTS: None. PRONATOR DRIFT: None. LABORATORY DATA: A comprehensive metabolic panel is significant for a potassium of 3.1 and an elevated serum glucose of 137. CBC with differential and platelets reveals a white blood cell count of 9.69 with a right shift with 45.3% neutrophils, 44.3% lymphocytes, 8.0% monocytes, 1.4% eosinophils, and 0.8% basophils. ESR is 16. A urinalysis was significant for cloudy urine with a specific gravity of 1.030, 2+ protein, 3+ glucose, and many urine bacteria in the setting of many urine epithelials cells. A urine test was negative. DIAGNOSTIC STUDIES: 1. Electrocardiogram, August 09, 2018: Sinus tachycardia at 112 beats per minute. There is evidence of left atrial enlargement on the electrocardiogram. 2. MRI of the brain without contrast, August 10, 2018: On my review, there is no evidence of recent or remote large territorial ischemia, hemorrhage, mass, or mass effect. Cerebral volumes are appropriate for age. There are no findings suggestive of chronic small-vessel ischemic disease or migraine cephalgia. ASSESSMENT AND PLAN: Ms. Wise is a 52-year-old imrbl-puyo-cxplcadw woman with no known prior medical history of primary headache disorder, admitted to [facility] on August 10, 2018 with migraine with ora with status migrainosus. The normal neuroimaging studies indicate the headaches are due to a primary headache disorder. The patient's neurological examination is nonfocal. Her laboratory data and other diagnostic studies have been reviewed and are documented above. RECOMMENDATIONS FOR TREATMENT: As follows: 1. Normal saline at 125 mL per hour intravenously will be prescribed. 2. Promethazine 25 mg intravenously every 6 hours x2 doses will be prescribed. 3. Methylprednisolone 125 mg intravenously every 6 hours x2 doses will be prescribed. 4. Valproate sodium 500 mg intravenously every 6 hours x2 doses will be prescribed. 5. Defer treatment of the remaining medical comorbidities to the primary and other services following the patient. Thank you for this consultation. I will continue to follow this patient while she remains in the hospital. TIME SPENT: 70 minutes. Job#: [id number] DR PORTER
[2018-08-11] MEDS: PROMETHAZINE 25MG/ NS 50ML (IV) IV SCH (00:23)
[2018-08-11] MEDS: HYDROMORPHONE 2MG/ML 2 MG/ML ML IV PRN ×2 (00:23→21:26)
[2018-08-11] MEDS: SODIUM CHLORIDE 0.9% 1000ML 1,000 ML IV SCH ×4 (00:45→20:49)
--- NOTE | 2018-08-11 04:28 | NUR ---
spoke with chay at [employer] service. regarding elevated bp. will await call back. Addendum: 08/11/18 at 0437 by Ash Greco RN call connected to dr singh. made some changes to her meds. metrololol changed to BID, give a dose now. also informed him that BP meds given around midnight. pt did not receive her meds throughout the day of 08/10/18
--- NOTE | 2018-08-11 07:05 | NUR ---
Walking rounds done and report received. Patient is awake in bed states she was up most of the night. Appears comfortable at this time. POC discussed. Patient instructed to call for assistance as needed and verbalized understanding. Call bazan within reach.
[2018-08-11] MEDS: SUCRALFATE 1 GM TAB PO SCH ×4 (08:30→20:48)
[2018-08-11] MEDS: PROMETHAZINE 25MG/ NS 50ML (IV) IV PRN ×2 (08:40→21:26)
[2018-08-11] MEDS: KETOROLAC TROMETHAMINE 30 MG/ML VIAL IV PRN (08:44)
[2018-08-11] MEDS: FAMOTIDINE 20 MG/2 ML VIAL IV SCH ×2 (08:51→17:53)
[2018-08-11] MEDS: METOCLOPRAMIDE HCL 10 MG TAB PO SCH ×4 (08:51→20:48)
[2018-08-11] MEDS: LORATADINE 10 MG TAB PO SCH (08:51)
[2018-08-11] MEDS: TRIAMTERENE/HCTZ 37.5-25 MG TAB PO SCH (08:51)
[2018-08-11] MEDS: DICYCLOMINE HCL 20 MG TAB PO SCH ×2 (08:51→17:53)
[2018-08-11] MEDS: METOPROLOL SUCCINATE 50 MG TAB XL PO SCH ×2 (08:52→17:54)
[2018-08-11] MEDS: ALPRAZOLAM 1 MG TAB PO SCH ×3 (08:52→20:48)
[2018-08-11] MEDS: SERTRALINE HCL 50 MG TAB PO SCH (08:52)
[2018-08-11] MEDS ORDERED: LOSARTAN POTASSIUM 25 MG TAB PO SCH ×2 (09:00)
[2018-08-11] MEDS ORDERED: METOPROLOL SUCCINATE 50 MG TAB XL PO SCH ×2 (09:00→17:00)
[2018-08-11] MEDS ORDERED: TRIAMTERENE/HCTZ 37.5-25 MG TAB PO SCH (09:00)
[2018-08-11] MEDS: SALMETEROL/FLUTICASONE 100/50 INH PRN (11:42)
[2018-08-11] MEDS: CLONIDINE HCL 0.2 MG TAB PO PRN (12:19)
[2018-08-11] MEDS ORDERED: METHYLPREDNISOLONE SOD SUCC 1,000 MG/8 ML VIAL IV SCH (16:45)
[2018-08-11] MEDS: METHYLPREDNISOLONE SOD SUCC 1,000 MG in SODIUM CHLORIDE 0.9% 100 ML IV SCH (17:53)
--- NOTE | 2018-08-11 18:00 | NUR ---
Dr. Vaz paged per daughter and patient request to consult Dr. Hendrix for HTN. Awaiting call back
--- NOTE | 2018-08-11 18:25 | NUR ---
Per Dr. Nadeen Castellano he will manage for HTN and does not feel the need to consult dr. Hendrix at this time. New order received to increase Losartan to 50mg PO daily. Patient was updated.
--- NOTE | 2018-08-11 19:04 | NUR ---
Report received and walking rounds complete. Pt resting in bed and in no apparent distress. All safety measures ensured, bed alarm on, and pt call bazan near.
[2018-08-11] MEDS: CLONAZEPAM 1 MG TAB PO SCH (20:48)
[2018-08-11] MEDS: DIPHENHYDRAMINE HCL INJ 50 MG/ML VIAL IV PRN (21:26)
[2018-08-11] MEDS: SENNOSIDES 8.6 MG TAB PO SCH (21:40)
[2018-08-12] VITALS (7 sets, daily range): BP systolic 154–197; BP diastolic 72–95
--- NOTE | 2018-08-12 00:58 | NUR ---
Pt BP 196/88. Pt c/o migrane headache. Pt already given Clonidine 0.2 mg earlier but no effect to lower BP by much. Will repeat BP and continue to monitor. Pt has no other complaints besides migrane and pt is asymptomatic.
--- NOTE | 2018-08-12 02:31 | NUR ---
Pt repeat BP 201/104. Pt asymptomatic but c/o slight migraine headache. Vasotec 1.25 mg IV given. Will repeat BP and continue to monitor.
--- NOTE | 2018-08-12 03:32 | NUR ---
Pt repeat BP 179/95. Pt asymptomatic. Will continue to monitor.
[2018-08-12] MEDS: KETOROLAC TROMETHAMINE 30 MG/ML VIAL IV PRN ×2 (04:21→14:19)
--- NOTE | 2018-08-12 04:49 | NUR ---
Pt 02 sat 92%. Pt put on 2LNC and pt asymptomatic.
--- NOTE | 2018-08-12 07:03 | NUR ---
Report given to oncoming nurse
[2018-08-12] MEDS: SODIUM CHLORIDE 0.9% 1000ML 1,000 ML IV SCH ×2 (08:45→16:45)
[2018-08-12] MEDS ORDERED: LOSARTAN POTASSIUM 25 MG TAB PO SCH (09:00)
[2018-08-12] MEDS: SUCRALFATE 1 GM TAB PO SCH ×4 (09:12→20:49)
[2018-08-12] MEDS: LORATADINE 10 MG TAB PO SCH (09:12)
[2018-08-12] MEDS: DICYCLOMINE HCL 20 MG TAB PO SCH ×2 (09:12→17:25)
[2018-08-12] MEDS: TRIAMTERENE/HCTZ 37.5-25 MG TAB PO SCH (09:12)
[2018-08-12] MEDS: METOCLOPRAMIDE HCL 10 MG TAB PO SCH ×4 (09:12→20:49)
[2018-08-12] MEDS: FAMOTIDINE 20 MG/2 ML VIAL IV SCH ×2 (09:12→17:25)
[2018-08-12] MEDS: ALPRAZOLAM 1 MG TAB PO SCH ×3 (09:13→20:49)
[2018-08-12] MEDS: METOPROLOL SUCCINATE 50 MG TAB XL PO SCH ×2 (09:13→17:26)
[2018-08-12] MEDS: SERTRALINE HCL 50 MG TAB PO SCH (09:13)
[2018-08-12] MEDS: SALMETEROL/FLUTICASONE 100/50 INH PRN (09:16)
[2018-08-12 12:02] LABS: BASOPHILS % 0.1 % (0.0-1.0); HEMATOCRIT 38.6 % (34.2-44.1); LYMPHOCYTES # (AUTO) 1.8 (1.0-3.2); MEAN CORPUSCULAR HEMOGLOBIN 26.4 pg (28-32); MEAN CORPUSCULAR HGB CONC 30.6 g/dL (31-35); MEAN CORPUSCULAR VOLUME 86.4 fL (81-99); MONOCYTES # (AUTO) 0.5 (0.2-0.8); MONOCYTES % 3.2 % (4.4-11.3); NEUTROPHILS # (AUTO) 12.4 (2.1-6.9); NEUTROPHILS % 82.8 % (38.7-80.0); PLATELET COUNT 305 x10e3/uL (140-360); RED BLOOD COUNT 4.47 x10e6/uL (3.6-5.1); RED CELL DISTRIBUTION WIDTH 14.1 % (11.7-14.4)
[2018-08-12 12:10] LABS: HEMOGLOBIN 11.8 g/dL (12.0-16.0)
[2018-08-12 12:17] LABS: ANION GAP 12.9 mmol/L (8-16); BLOOD UREA NITROGEN 17 mg/dL (7-26); BUN/CREATININE RATIO 17 (6-25); CALCIUM 10.3 mg/dL (8.4-10.2); CARBON DIOXIDE 31 mmol/L (22-29); CHLORIDE 92 mmol/L (98-107); CREATININE, SERUM 1.02 mg/dL (0.57-1.11); EST GLOMERULAR FILTRATION RATE > 60 ML/MIN (60-); POTASSIUM 3.9 mmol/L (3.5-5.1); SODIUM 132 mmol/L (136-145)
--- NOTE | 2018-08-12 12:27 | NUR ---
Lab called with high glucose of 428, repeat glucose 392. Dr. Castellano paged to notify.
[2018-08-12 12:28] LABS: GLUCOSE 428 mg/dL (74-118)
[2018-08-12] MEDS: CLONIDINE HCL 0.2 MG TAB PO PRN (12:30)
--- NOTE | 2018-08-12 13:41 | NUR ---
Received orders from Dr. Castellano regarding elevated blood sugar see EMR. Patient informed and asymptomatic
[2018-08-12] MEDS ORDERED: DEXTROSE 50% SYRINGE 50 ML IV PRN (13:45)
[2018-08-12] MEDS: INSULIN LISPRO 100 UNIT/1 ML 3ML VIAL SQ SCH ×3 (13:46→20:50)
[2018-08-12] MEDS: HYDRALAZINE HCL 25 MG TAB PO SCH ×2 (14:01→20:49)
[2018-08-12] MEDS: PROMETHAZINE 25MG/ NS 50ML (IV) IV PRN ×2 (14:19→22:53)
[2018-08-12] MEDS: METHYLPREDNISOLONE SOD SUCC 1,000 MG in SODIUM CHLORIDE 0.9% 100 ML IV SCH (17:25)
--- NOTE | 2018-08-12 17:41 | NUR ---
Patient is requesting extra snacks after eating 100% of dinner. She was educated on hyperglycemia.
--- NOTE | 2018-08-12 19:00 | NUR ---
Report given to oncoming shift. Call bazan within reach.
--- NOTE | 2018-08-12 19:10 | NUR ---
Report received and walking rounds complete. Pt resting in bed and in no apparent distress. All safety measures ensured and pt call bazan near.
[2018-08-12] MEDS: CLONAZEPAM 1 MG TAB PO SCH (20:49)
--- NOTE | 2018-08-12 21:14 | NUR ---
report given to JENNIFER Ortiz for pt transfer to room 102.
--- NOTE | 2018-08-12 21:25 | NUR ---
RECEIVED PT FROM ROOM#183.AAOX4.AMBULATES.NO RESP.DISTRESS.NO IV ACCESS.ORIENTED TO THE UNIT.BED LOCKED AND IN LOWEST POSITION.PHONE AND CALL LIGHT WITHIN REACH.INSTRUCTED TO CALL FOR ASSISTANCE NEEDED.
--- NOTE | 2018-08-12 22:00 | NUR ---
IV STARTED @ L FOREARM.PATENT.PAIN VOICED 02/02.IV NS RUNNING @ 125.KEEP MONITORING THE PT.
[2018-08-12] MEDS: DIPHENHYDRAMINE HCL INJ 50 MG/ML VIAL IV PRN (22:40)
[2018-08-12] MEDS: HYDROMORPHONE 2MG/ML 2 MG/ML ML IV PRN (22:48)
[2018-08-13] VITALS (18 sets, daily range): BP systolic 130–192; BP diastolic 76–102
[2018-08-13] MEDS: SODIUM CHLORIDE 0.9% 1000ML 1,000 ML IV SCH (00:19)
[2018-08-13] MEDS: KETOROLAC TROMETHAMINE 30 MG/ML VIAL IV PRN ×2 (03:06→10:29)
[2018-08-13] MEDS: CLONIDINE HCL 0.2 MG TAB PO PRN (06:00)
--- NOTE | 2018-08-13 07:00 | NUR ---
REPORT GIVEN TO THE ONCOMING RN.WALKING ROUNDS DONE.STABLE CONDITION.
[2018-08-13] MEDS: SUCRALFATE 1 GM TAB PO SCH ×4 (08:30→21:25)
[2018-08-13] MEDS: METOCLOPRAMIDE HCL 10 MG TAB PO SCH ×4 (09:00→21:25)
[2018-08-13] MEDS: ALPRAZOLAM 1 MG TAB PO SCH ×2 (09:00→15:00)
[2018-08-13] MEDS: DICYCLOMINE HCL 20 MG TAB PO SCH ×2 (09:00→17:57)
[2018-08-13] MEDS: SERTRALINE HCL 50 MG TAB PO SCH (09:00)
[2018-08-13] MEDS: LOSARTAN POTASSIUM 100 MG TAB PO SCH ×2 (09:00→12:30)
[2018-08-13] MEDS: TRIAMTERENE/HCTZ 37.5-25 MG TAB PO SCH (09:00)
[2018-08-13] MEDS: METOPROLOL SUCCINATE 50 MG TAB XL PO SCH ×2 (09:00→21:25)
[2018-08-13] MEDS: SENNOSIDES 8.6 MG TAB PO SCH (09:00)
[2018-08-13] MEDS: HYDRALAZINE HCL 25 MG TAB PO SCH ×4 (09:00→21:25)
[2018-08-13] MEDS: LORATADINE 10 MG TAB PO SCH (09:00)
--- NOTE | 2018-08-13 09:51 | Progress Note ---
DATE: INTERNAL MEDICINE PROGRESS NOTE SUBJECTIVE: This patient came with severe migraine headache. She was diagnosed with status migrainosus and seen by neurologist, started on IV fluids and IV Solu-Medrol. Blood sugar is very high. We started the patient on regimen of Levemir and Humalog. PHYSICAL EXAMINATION: VITAL SIGNS: Blood pressure 192/98, temperature 97.5, heart rate 58 per minute, respiratory rate 16 per minute, oxygen saturation 95%. HEART: Shows regular rhythm. Normal S1 and S2 sounds. LUNGS: Clear bilaterally. ABDOMEN: Soft. EXTREMITIES: Shows no evidence of cyanosis, edema, or trauma. On the blood work, we have a BMP, sodium 132, potassium 3.9, chloride 92, CO2 31, BUN 17, creatinine 1.02, glucose 428. On the CBC, white blood count 15,000; hemoglobin 11.8; hematocrit 38.6; platelet count 305,000. AST 20, ALT 30, total bilirubin 0.4, alkaline phosphatase 65. FINAL IMPRESSION: 1. Status migrainosus. 2. Hypertensive emergency. 3. Uncontrolled diabetes mellitus type 2. PLAN OF TREATMENT: Continue Solu-Medrol. Continue IV fluids at 125 mL an hour. Continue enalapril at 1.25 mg IV q.6h. as needed for hypertension, Benadryl 25 mg q.6h. as needed for itching, metoclopramide 10 mg q.6h., Ambien 20 mg at night p.r.n. for sleep. Losartan has been increased to 100 mg daily. Continue Pepcid 20 mg twice a day. Continue clonidine 0.2 mg 3 times a day as needed, Bentyl 20 mg twice a day, Symbicort 1 inhalation twice a day, Toradol 30 mg IV q.6h. as needed, hydralazine is going to be increased to 50 mg 3 times a day. Continue metoprolol 50 mg q.12h. Continue Dilaudid 2 mg IV q.6h. as needed for severe pain. Continue Senna 1 tablet daily. Monitor blood sugar a.c. and at bedtime. Alprazolam 1 mg 3 times a day as needed for anxiety, promethazine 25 mg IV q.6h. as needed, Claritin 10 mg daily, Carafate 1 g before meals at bedtime, Dyazide 1 tablet daily, clonazepam 1 mg daily, D50 IV push as needed for hypoglycemia. I started patient on Levemir 15 units subcutaneously at bedtime and Humalog 5 units before each meal. I consulted Dr. Devries, endocrinology because of the uncontrolled blood sugar. Job#: [id number]
[2018-08-13] MEDS: FAMOTIDINE 20 MG/2 ML VIAL IV SCH ×2 (10:00→21:00)
[2018-08-13] MEDS: INSULIN LISPRO 100 UNIT/1 ML 3ML VIAL SQ SCH ×6 (10:00→21:25)
[2018-08-13] MEDS ORDERED: INSULIN LISPRO 100 UNIT/1 ML 3ML VIAL SQ SCH (11:30)
--- NOTE | 2018-08-13 12:40 | NUR ---
SPOKE WITH MD GARDUNO, MADE AWARE THAT BEDSIDE GLUCOSE WAS 526, RECHECKED WITH THE LAB AT 456, ORDERS NOTED TO GIVE MD DIYA ENCARNACION INTO SEE PT, DISCUSSED POC, AWARE THAT PT IS STILL HAVING CAMACHO
--- NOTE | 2018-08-13 13:36 | NUR ---
ASSESSMENT: Spiritual distress Pt grieving mother's . Pt states her mother, who lived with her for past 13 years, recently. Pt states her headaches began a short time before her mother's . Pt states she now lives alone with a pet. Pt states she has two adult children who check on her often. Pt states she has also been recently "diagnosed with cancer." Intervention: Provided empathic listening. Facilitated illness review and storytelling. Facilitated conversation concerning resources. Provided prayer. Outcome: Will follow as able. Provided information on how to reach administrative assistant receptionist, if needed. LISA QIU Substation Technician Spiritual Care Department O: [phone] Pager: [phone] ([phone] number calling from)
--- NOTE | 2018-08-13 14:05 | NUR ---
MD GUADARRAMA INTO SEE PT, DISCUSSED POC
--- NOTE | 2018-08-13 14:27 | Consultation ---
DATE OF CONSULTATION: August 13, 2018 ENDOCRINE CONSULTATION This is a patient of Dr. Zak Castellano. Thank you very much for referring this patient. HISTORY OF PRESENT ILLNESS: This is a 52-year-old black female who is referred to me for evaluation of diabetes mellitus. 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 She was doing relatively all right. She is not a known diabetic in the past according to patient. She came to the hospital with a history of severe headaches, probably migraine headaches, and during the hospital stay she was put on steroids. As a result of that, her blood sugar jumped up to almost 400 to 500 range. Patient also has history of hypertension, and she is on clonidine 0.2 mg three times a day. Her other routine medications include multiple pain medicines. She is also on losartan 100 mg once daily and hydralazine. PHYSICAL EXAMINATION: GENERAL: Today the patient is alert, awake, a little bit apprehensive. She is moderately overweight. VITAL SIGNS: Her heart rate is around 78, blood pressure 140/80 mmHg. HEENT: Examination essentially unremarkable. Thyroid is palpable. Clinically she is near euthyroid. CHEST: Bilateral vesicular breathing. She has mild bronchospasm. CARDIAC: Both 1st and 2nd heart sounds. There is no 3rd or 4th heart sound. Ejection sound grade 2/6. CLINICAL IMPRESSION: 1. Diabetes mellitus type 2, new onset, precipitated by steroids. 2. Severe headache. 3. Hypertension, accelerated. 4. Status post neuroendocrine tumor. 5. Status post colectomy, colon resection. The plan at this time is to do a hemoglobin A1c, thyroid function test. Monitor her blood sugars closely. Will start her on a combination of the Lantus and Humalog. Thanks for referring this patient. I will be following this patient with you. Job#: [id number]
[2018-08-13 15:40] LABS: FREE T4 (FREE THYROXINE) 0.9 ng/dL (0.9-1.8); THYROID STIMULATING HORMONE 0.195 uIU/mL (0.350-4.940)
[2018-08-13] MEDS ORDERED: KETAMINE HCL IV SCH (16:00)
[2018-08-13] MEDS ORDERED: SODIUM CHLORIDE 0.9% IV SCH (16:00)
--- NOTE | 2018-08-13 16:45 | NUR ---
received patient to icu 196. patient is alert & oriented x3, ambulatory, follows commands. is reporting pain level of 10 headache.
--- NOTE | 2018-08-13 16:50 | NUR ---
REPORT TO JENNIFER MARES TAKING OVER CARE OF PT, PT TRANSFERRED TO ROOM 196, ALL PERSONAL BELONGINGS WITH PT, NO CHANGE IN CONDITION
--- NOTE | 2018-08-13 17:00 | NUR ---
Ketamine drip started at 0.1mg/kg/hr, witnessed by emil mccann.
--- NOTE | 2018-08-13 20:25 | NUR ---
Pt feels chest tightness 4/10 may be related to indigestion. Dr. Botello called, orders received. Protonix 40 mg PO ordered and will administer.
[2018-08-13] MEDS ORDERED: INSULIN DETEMIR 100 UNIT/ML PEN SQ SCH ×2 (21:00)
[2018-08-13] MEDS ORDERED: PANTOPRAZOLE SOD 40 MG TABEC PO ONE (21:00)
--- NOTE | 2018-08-13 23:57 | NUR ---
Pt reporting chest tightness has increased to 02/02. Vital signs stable, no changes at this time. Dr. Botello called, no new orders received. Pt given the option to discontinue the Ketamine gtt or continue and see if chest tightness subsides. Pt elected to continue Ketamine gtt.
[2018-08-14] VITALS (24 sets, daily range): BP systolic 118–170; BP diastolic 65–108
[2018-08-14 05:38] LABS: BASOPHILS % 0.2 % (0.0-1.0); EOSINOPHILS % 0.1 % (0.0-6.0); HEMATOCRIT 36.4 % (34.2-44.1); HEMOGLOBIN 11.8 g/dL (12.0-16.0); LYMPHOCYTES # (AUTO) 5.1 (1.0-3.2); MEAN CORPUSCULAR HEMOGLOBIN 26.9 pg (28-32); MEAN CORPUSCULAR HGB CONC 32.4 g/dL (31-35); MEAN CORPUSCULAR VOLUME 82.9 fL (81-99); MONOCYTES # (AUTO) 1.4 (0.2-0.8); MONOCYTES % 8.9 % (4.4-11.3); NEUTROPHILS # (AUTO) 8.8 (2.1-6.9); NEUTROPHILS % 56.9 % (38.7-80.0); PLATELET COUNT 296 x10e3/uL (140-360); RED BLOOD COUNT 4.39 x10e6/uL (3.6-5.1); RED CELL DISTRIBUTION WIDTH 13.9 % (11.7-14.4)
[2018-08-14 05:48] LABS: ANION GAP 12.4 mmol/L (8-16); BLOOD UREA NITROGEN 17 mg/dL (7-26); BUN/CREATININE RATIO 20 (6-25); CALCIUM 8.8 mg/dL (8.4-10.2); CARBON DIOXIDE 29 mmol/L (22-29); CHLORIDE 100 mmol/L (98-107); CREATININE, SERUM 0.84 mg/dL (0.57-1.11); EST GLOMERULAR FILTRATION RATE > 60 ML/MIN (60-); GLUCOSE 246 mg/dL (74-118); POTASSIUM 3.4 mmol/L (3.5-5.1); SODIUM 138 mmol/L (136-145)
[2018-08-14] MEDS: CLONIDINE HCL 0.2 MG TAB PO PRN (06:10)
[2018-08-14] MEDS: INSULIN LISPRO 100 UNIT/1 ML 3ML VIAL SQ SCH ×2 (07:47→11:55)
--- NOTE | 2018-08-14 08:00 | NUR ---
ketamine drip stopped. patient is reporting she does not like the way the medicine is making her feel, food is not tasting right, she can't find the right words and her pain is unchanged. dr oconnor notified.
[2018-08-14 08:02] LABS: LYMPHOCYTES % (MANUAL) 31 % (19-48); MONOCYTES % (MANUAL) 7 % (3.4-9.0); NEUTROPHILS % (MANUAL) 62 % (40-74); PLATELET ESTIMATE ADEQUATE; PLATELET MORPHOLOGY COMMENT NORMAL; RBC MORPHOLOGY COMMENT NORMAL
[2018-08-14] MEDS: LORATADINE 10 MG TAB PO SCH (08:33)
[2018-08-14] MEDS: SUCRALFATE 1 GM TAB PO SCH ×2 (08:33→11:55)
[2018-08-14] MEDS: HYDRALAZINE HCL 25 MG TAB PO SCH (08:33)
[2018-08-14] MEDS: DICYCLOMINE HCL 20 MG TAB PO SCH (08:33)
[2018-08-14] MEDS: METOPROLOL SUCCINATE 50 MG TAB XL PO SCH (08:34)
[2018-08-14] MEDS: SENNOSIDES 8.6 MG TAB PO SCH (08:34)
[2018-08-14] MEDS: LOSARTAN POTASSIUM 100 MG TAB PO SCH (08:34)
[2018-08-14] MEDS: TRIAMTERENE/HCTZ 37.5-25 MG TAB PO SCH (08:34)
[2018-08-14] MEDS: METOCLOPRAMIDE HCL 10 MG TAB PO SCH ×2 (08:34→11:55)
[2018-08-14] MEDS: SERTRALINE HCL 50 MG TAB PO SCH (08:34)
[2018-08-14] MEDS ORDERED: PANTOPRAZOLE SOD 40 MG TABEC PO SCH (09:00)
[2018-08-14] MEDS ORDERED: LANTUS 3ML100 UNITS/ SC (16:00)
[2018-08-14] MEDS ORDERED: HUMALOG100 UNIT/3 SQ (16:01)
[2018-08-14] MEDS ORDERED: INSULIN LISPRO 100 UNIT/1 ML 3ML VIAL SQ SCH ×2 (16:30→21:00)
--- NOTE | 2018-08-15 03:57 | Discharge Summary ---
HOSPITAL COURSE: She is a 52-year-old female with past medical history positive for hypertension and diabetes, who came to the hospital complaining of migraine headaches. She was started on migraine regimen by Dr. Botello. She got some side effects from the medications. She is ready to go home today. She is feeling better. PHYSICAL EXAM VITAL SIGNS: Blood pressure 123/82, temperature 97.8, heart rate 62 per minute, respiratory rate 16 per minute, and oxygen saturation 99%. HEENT: Throat showed thrush. HEART: Regular rhythm. Normal S1 and S2 sounds. LUNGS: Clear bilaterally. ABDOMEN: Soft. LABS: On the BMP; sodium 138, potassium 3.4, chloride 100, CO2 of 29, BUN 17, creatinine 0.84, and glucose 246. On the CBC; white blood count 15.5, hemoglobin 11.8, hematocrit 36.4, platelet count 286,000. AST 28, ALT 30, total bilirubin 0.4, alkaline phosphatase 65. FINAL IMPRESSION 1. Status migrainosus. 2. Uncontrolled hypertension. 3. Uncontrolled diabetes mellitus type 2. 4. Oral thrush. PLAN OF TREATMENT: Patient is going home with Maxalt-[employer] 10 mg twice a day as needed for migraine headaches, Phenergan 25 mg q.6h. as needed for nausea. She is going to take metoprolol 50 mg twice a day, hydralazine 50 mg q.8h., losartan 100 mg daily. Continue with Levemir 22 units at bedtime, Dyazide 1 tablet daily. She is also taking Humalog 15 units before meals. Follow up with Dr. Castellano as an outpatient. Job#: [id number]
== END 2018-08-14 16:57 | disposition home or self-care (01) | DRG 103 ==
LOC: ER 16:57 → ERHOLD 08-10 00:40 → IMCU 08-10 02:51 → OBSVTOIN 08-12 16:26 → MED/SURG 08-12 21:24 → ICU 08-13 17:14
DX: G43.101 Migraine with aura, not intractable, with status migrainosus (principal); B37.0 Candidal stomatitis; K50.90 Crohn's disease, unspecified, without complications; I10 Essential (primary) hypertension; K21.9 Gastro-esophageal reflux disease without esophagitis; E11.65 Type 2 diabetes mellitus with hyperglycemia; J45.909 Unspecified asthma, uncomplicated; R00.0 Tachycardia, unspecified; Z90.49 Acquired absence of other specified parts of digestive tract; F41.0 Panic disorder [episodic paroxysmal anxiety]; Z79.4 Long term (current) use of insulin; Z88.2 Allergy status to sulfonamides; Z88.6 Allergy status to analgesic agent; Z88.1 Allergy status to other antibiotic agents; Z91.041 Radiographic dye allergy status; Z88.5 Allergy status to narcotic agent; Z88.0 Allergy status to penicillin; Z91.013 Allergy to seafood
CPT/HCPCS: 36415; 70551; 80048; 80053; 81001; 81025; 82947; 82948; 83036; 84439; 84443; 85025; 85651; 93005; 96361; 96372; 99283; G0378; J1100; J1200; J1885; J2405; J2550; J2930; J7030; J7040; J7050

== ENCOUNTER → 2020-05-31 | Outpatient (CLI) | payer OTHER ==
[~2020-05-31] MED LIST changes: +AMBIEN10 MG PO; +HUMALOG100 UNIT/3 SQ; +LANTUS 3ML100 UNITS/ SC
== END ==
LOC: MAMMO 10:11
DX: Z12.31 Encounter for screening mammogram for malignant neoplasm of breast (principal); M89.9 Disorder of bone, unspecified; Z78.0 Asymptomatic menopausal state
CPT/HCPCS: 77067; 77080